=== PATIENT | female | born 1985 | race Caucasian/White ===

== ENCOUNTER 2019-01-21 14:54 | Inpatient (IN) | payer OTHER ==
[~2019-01-21] VITALS: Ht 162.6 cm; Wt 79.4 kg
[~2019-01-21 14:54] MED LIST changes: -Augmentin 875-1 EACH PO; -OXYC5 PO
--- NOTE | 2019-01-22 07:29 | NUR ---
SHIFT SUMMARY PT A&O X4 T/O SHIFT. SCD'S TO BLE'S. ABD SOFT, TENDER, BTX4. PT INDEPENDENT IN ROOM; ORAL CARE SUPPLIES, ORAL SWABS AND MOUTH WASH IN PT ROOM. IV GTT PER EMAR. NAUSEA X1 MANAGED PER EMAR. RLQ PAIN MANAGED PER EMAR. PT NPO POST MIDNIGHT. AT BEDSIDE. REPORT GIVEN TO DAY SHIFT RN.
--- NOTE | 2019-01-22 10:40 | NUR ---
PT INTO SDS VIA GURNEY FROM 221. Patient confirms NPO status and agrees with scheduled surgery. Lungs clear T/O to Auscultation. History, Chart, Medications and Allergies reviewed before start of procedure.
--- NOTE | 2019-01-22 11:53 | NUR ---
01/22/19 1153 Michael Gilbert PT ON SCHEDULED ANTIBIOTICS AND RECIEVED PRIOR TO ARRIVAL TO OR.
--- NOTE | 2019-01-22 13:23 | NUR ---
BREATHING RA. BIOX 94%. DENIES PAIN. SHAKES HEAD YES WHEN ASKED IF C/O NAUSEA. NO EMESIS.
--- NOTE | 2019-01-22 15:39 | NUR ---
SHIFT SUMMARY PT A&OX4, VSS, S/P LAP APPY, 3 GAUZE/TAPE OVER STERISTRIPS, DEDRICK DRAIN SEROSANGUINOUS OUTPUT. DENIES PAIN AT THIS TIME. NAUSEA TX'D X1. WCTM AND TX PER EMAR UNTIL REPORT GIVEN TO ONCOMING NOC RN.
[2019-01-23 04:25] LABS: BASOPHILS ABSOLUTE AUTO 0.03 K/mm3 (0.00-0.23); BASOPHILS PERCENT AUTO 0 % (0-2); EOSINOPHILS ABSOLUTE AUTO 0.02 K/mm3 (0.00-0.68); EOSINOPHILS PERCENT AUTO 0 % (0-6); Hematocrit 35.3 % (33.0-51.0); Hemoglobin 11.2 g/dL (11.5-16.0); IMMATURE GRAN ABSOLUTE AUTO 0.05 K/mm3 (0.00-0.10); IMMATURE GRAN PERCENT AUTO 0 % (0-1); LYMPHOCYTES ABSOLUTE AUTO 0.78 K/mm3 (0.84-5.20); LYMPHOCYTES PERCENT AUTO 6 % (21-46); MONOCYTES ABSOLUTE AUTO 0.67 K/mm3 (0.16-1.47); MONOCYTES PERCENT AUTO 5 % (4-13); Mean Corpuscular HGB 28.6 pg (26.0-34.0); Mean Corpuscular HGB Conc 31.7 g/dL (31.5-36.5); NEUTROPHILS ABSOLUTE AUTO 10.85 K/mm3 (1.96-9.15); NEUTROPHILS PERCENT AUTO 88 % (41-73); Platelet Count 215 K/mm3 (150-400); RDW Coefficient Variation 12.9 % (11.7-14.2); RDW Standard Deviation 42.3 fL (35.1-46.3); Red Blood Cell Count 3.92 M/mm3 (3.80-5.20)
[2019-01-23 04:28] LABS: Mean Corpuscular Volume 90 fL (80-100)
[2019-01-23 04:48] LABS: Anion Gap 3 mmol/L (6-16); Blood Urea Nitrogen 5 mg/dL (8-24); Bun/Creatinine Ratio 6.7 (12.0-20.0); CO2, Blood 29 mmol/L (21-32); Chloride, Blood 105 mmol/L (98-108); Creatinine, Blood 0.75 mg/dL (0.40-1.00); Glomerular Filtration Rate >60 (60-); Glucose, Blood 124 mg/dL (70-99); Potassium, Blood 3.3 mmol/L (3.5-5.5); Sodium, Blood 137 mmol/L (136-145)
--- NOTE | 2019-01-23 07:34 | NUR ---
SHEILA: POD [address] LOVE. VSS, AFEBRILE ON ROOM AIR. PT VOIDING, TOLERATING REG DIET AND MOVES WELL INDEPENDENTLY IN ROOM. MILD TO MODERATE ABD DISTENTION WITH APPROXIMATELY 100 ML SEROUS OUTPUT IN DEDRICK DRAIN. CONTINUE IV ROCEPHIN AND FLAGYL.
--- NOTE | 2019-01-23 18:28 | NUR ---
summary pain controlled with motrin. patient states is passing flatus. ambulating independently in hallway and room
[2019-01-24 04:31] LABS: BASOPHILS ABSOLUTE AUTO 0.02 K/mm3 (0.00-0.23); BASOPHILS PERCENT AUTO 0 % (0-2); EOSINOPHILS ABSOLUTE AUTO 0.08 K/mm3 (0.00-0.68); EOSINOPHILS PERCENT AUTO 1 % (0-6); Hematocrit 30.4 % (33.0-51.0); Hemoglobin 9.8 g/dL (11.5-16.0); IMMATURE GRAN ABSOLUTE AUTO 0.02 K/mm3 (0.00-0.10); IMMATURE GRAN PERCENT AUTO 0 % (0-1); LYMPHOCYTES ABSOLUTE AUTO 0.86 K/mm3 (0.84-5.20); LYMPHOCYTES PERCENT AUTO 12 % (21-46); MONOCYTES ABSOLUTE AUTO 0.44 K/mm3 (0.16-1.47); MONOCYTES PERCENT AUTO 6 % (4-13); Mean Corpuscular HGB 28.2 pg (26.0-34.0); Mean Corpuscular HGB Conc 32.2 g/dL (31.5-36.5); Mean Corpuscular Volume 88 fL (80-100); NEUTROPHILS ABSOLUTE AUTO 5.78 K/mm3 (1.96-9.15); NEUTROPHILS PERCENT AUTO 80 % (41-73); Platelet Count 185 K/mm3 (150-400); RDW Coefficient Variation 12.8 % (11.7-14.2); RDW Standard Deviation 40.9 fL (35.1-46.3); Red Blood Cell Count 3.47 M/mm3 (3.80-5.20)
--- NOTE | 2019-01-24 07:42 | NUR ---
SUMMARY: POD [address] LOVE. VSS, AFEBRILE, ROOM AIR, VOIDING. PAIN WELL CONTROLLED IN NOC WITH 800MG IBUPROFEN. WBC DOWN TO 7.2 THIS MORNING; ANTICIPATE DC HOME TODAY.
--- NOTE | 2019-01-24 10:38 | NUR ---
20G IV PRESENT TO L HAND UPON ASSESSMENT.
[2019-01-24] MEDS ORDERED: OXYC5 PO (13:20)
[2019-01-24] MEDS ORDERED: Augmentin 875-1 EACH PO (13:21)
--- NOTE | 2019-01-24 13:42 | NUR ---
PT DISCHARGED AT THIS TIME. PT AMBULATED OUT. ASSISTANCE WAS OFFERED, PT DECLINED.
--- NOTE | 2019-01-24 13:43 | NUR ---
DISCHARGE SUMMARY PT A&OX4, VSS, LEFT FLOOR WITH ALL PERSONAL POSSESSIONS INCLUDING DISCHARGE PACKET AND 1 SCRIPT FOR RTWORK, NARC SCRIPT, ABX SCRIPT. DISCHARGE INSTRUCTIONS PROVIDED. PT REP UNDERSTANDING THOSE INSTRUCTIONS INCLUDING FU WITH SURGEON IN 2 WKS, TAKE ABX BID WMEALS, CALL SG WITH Q'S OR S/SX INFECTION, LEAVE STERIS IN PLACE 7-10 DAYS, OK TO SHOWER NO TUB/JACUZZI. IV DC'D.
== END 2019-01-24 13:44 | disposition home or self-care (01) | DRG 339 ==
LOC: ER 14:54 → SURS 17:07
PROVIDERS: ADMIT Surgery
PROC: 0DTJ4ZZ Resection of Appendix, Percutaneous Endoscopic Approach (ICD-10-PCS; principal; 2019-01-22 11:30)
DX: K35.32 Acute appendicitis with perforation, localized peritonitis, and gangrene, without abscess (principal); D68.2 Hereditary deficiency of other clotting factors; Z87.891 Personal history of nicotine dependence
CPT/HCPCS: 36415; 80048; 85025; 88302; 96365; 96367; 99285-25; A9270-GY; J0330; J0696; J1650; J2250; J2405; J2704; J2710; J3010; J7030; J7120

== ENCOUNTER → 2019-01-21 | Outpatient (CLI) | payer OTHER ==
[~2019-01-21] MED LIST: ACET325; ALBU90OI INH; AMOCLA875 PO; AMOX500 PO; Augmentin 875-1 EACH PO; BCP PO; CEFD300 PO; HYDACE5 PO; IBUHYD PO; IBUP200; MULVITMINE; NAPR500 PO; ONDA4 PO; OXYC5 PO; RXHYDACE PO; RXHYDMOR2 PO; TRAM50 PO
[2019-01-21 13:07] LABS: BASOPHILS ABSOLUTE AUTO 0.03 K/mm3 (0.00-0.23); BASOPHILS PERCENT AUTO 0 % (0-2); EOSINOPHILS ABSOLUTE AUTO 0.01 K/mm3 (0.00-0.68); EOSINOPHILS PERCENT AUTO 0 % (0-6); Hematocrit 42.8 % (33.0-51.0); Hemoglobin 14.5 g/dL (11.5-16.0); IMMATURE GRAN ABSOLUTE AUTO 0.27 K/mm3 (0.00-0.10); IMMATURE GRAN PERCENT AUTO 2 % (0-1); LYMPHOCYTES PERCENT AUTO 11 % (21-46); MONOCYTES ABSOLUTE AUTO 1.06 K/mm3 (0.16-1.47); MONOCYTES PERCENT AUTO 7 % (4-13); Mean Corpuscular HGB 28.4 pg (26.0-34.0); Mean Corpuscular HGB Conc 33.9 g/dL (31.5-36.5); Mean Corpuscular Volume 84 fL (80-100); Mean Platelet Volume 9.6 fL (9.1-12.4); NEUTROPHILS ABSOLUTE AUTO 11.85 K/mm3 (1.96-9.15); NEUTROPHILS PERCENT AUTO 80 % (41-73); Platelet Count 291 K/mm3 (150-400); RDW Coefficient Variation 12.6 % (11.7-14.2); RDW Standard Deviation 38.5 fL (35.1-46.3); White Blood Cell Count 14.82 K/mm3 (4.00-11.30)
[2019-01-21 13:14] LABS: Alanine Aminotransfer (ALT/SGP 24 U/L (12-78); Albumin, Blood 4.3 g/dL (3.4-5.0); Albumin/Globulin Ratio 1.2 (0.8-1.8); Alk Phos 63 U/L (40-126); Anion Gap 9 mmol/L (6-16); Aspartate Aminotrans (AST/SGOT 15 U/L (12-37); Bilirubin, Total 0.8 mg/dL (0.1-1.0); Blood Urea Nitrogen 9 mg/dL (8-24); Bun/Creatinine Ratio 12.5 (12.0-20.0); CO2, Blood 25 mmol/L (21-32); Calcium, Blood 9.4 mg/dL (8.5-10.1); Chloride, Blood 102 mmol/L (98-108); Creatinine, Blood 0.72 mg/dL (0.40-1.00); Globulin, Blood 3.6 g/dL (2.2-4.0); Glomerular Filtration Rate >60 (60-); Glucose, Blood 131 mg/dL (70-99); Potassium, Blood 3.8 mmol/L (3.5-5.5); Sodium, Blood 136 mmol/L (136-145); Total Protein, Blood 7.9 g/dL (6.4-8.2)
== END | disposition home or self-care (01) ==
LOC: LAB SHORT 12:57 → LAB EV 12:57
PROVIDERS: Physician Assistant Medical
DX: R10.31 Right lower quadrant pain (principal)
CPT/HCPCS: 80053; 85025

== ENCOUNTER 2019-05-14 10:38 | Day surgery (SDC) | payer OTHER ==
[~2019-05-14] VITALS: Ht 162.6 cm; Wt 77.1 kg
[~2019-05-14 10:38] MED LIST changes: +Augmentin 875-1 EACH PO; +OXYC5 PO
[2019-05-14] MEDS ORDERED: ADVIL LIQUI-GE200 MG (11:27)
[2019-05-14] MEDS ORDERED: Adipex-P37.5 MG (11:27)
[2019-05-14] MEDS ORDERED: TERB250 (11:27)
--- NOTE | 2019-05-14 12:44 | NUR ---
05/14/19 1244 Cindy Foley ATTEMPTED DILITATION WITH SAVORY 18.
== END 2019-05-14 13:14 | disposition home or self-care (01) ==
LOC: ORSCSDS 10:38
PROVIDERS: Internal Medicine Gastroenterology
PROC: 0DB18ZX Excision of Upper Esophagus, Via Natural or Artificial Opening Endoscopic, Diagnostic (ICD-10-PCS; principal; 2019-05-14 12:00)
PROC: 0D718ZZ Dilation of Upper Esophagus, Via Natural or Artificial Opening Endoscopic (ICD-10-PCS; principal; 2019-05-14 12:00)
PROC: 0D738ZZ Dilation of Lower Esophagus, Via Natural or Artificial Opening Endoscopic (ICD-10-PCS; principal; 2019-05-14 12:00)
PROC: 0D757ZZ Dilation of Esophagus, Via Natural or Artificial Opening (ICD-10-PCS; principal; 2019-05-14 12:00)
PROC: 0DB38ZX Excision of Lower Esophagus, Via Natural or Artificial Opening Endoscopic, Diagnostic (ICD-10-PCS; principal; 2019-05-14 12:00)
DX: R13.10 Dysphagia, unspecified (principal); R49.8 Other voice and resonance disorders; J45.909 Unspecified asthma, uncomplicated; Z87.891 Personal history of nicotine dependence; Z79.899 Other long term (current) drug therapy
CPT/HCPCS: 88305; J2704; J7120

== ENCOUNTER → 2022-08-13 | Outpatient (CLI) | payer OTHER ==
[~2022-08-13] MED LIST changes: +ADVIL LIQUI-GE200 MG; +Adipex-P37.5 MG; +TERB250
[2022-08-13 17:16] LABS: BASOPHILS ABSOLUTE AUTO 0.04 K/mm3 (0.00-0.23); BASOPHILS PERCENT AUTO 1 % (0-2); EOSINOPHILS PERCENT AUTO 1 % (0-6); Hematocrit 43.5 % (33.0-51.0); Hemoglobin 14.8 g/dL (11.5-16.0); IMMATURE GRAN ABSOLUTE AUTO 0.02 K/mm3 (0.00-0.10); IMMATURE GRAN PERCENT AUTO 0 % (0-1); LYMPHOCYTES ABSOLUTE AUTO 2.06 K/mm3 (0.84-5.20); LYMPHOCYTES PERCENT AUTO 26 % (21-46); MONOCYTES ABSOLUTE AUTO 0.48 K/mm3 (0.16-1.47); MONOCYTES PERCENT AUTO 6 % (4-13); Mean Corpuscular Volume 85 fL (80-100); Mean Platelet Volume 10.2 fL (9.1-12.4); NEUTROPHILS ABSOLUTE AUTO 5.12 K/mm3 (1.96-9.15); NEUTROPHILS PERCENT AUTO 66 % (41-73); Platelet Count 257 K/mm3 (150-400); RDW Coefficient Variation 12.5 % (11.7-14.2); RDW Standard Deviation 38.6 fL (35.1-46.3); Red Blood Cell Count 5.11 M/mm3 (3.80-5.20); White Blood Cell Count 7.82 K/mm3 (4.00-11.30)
[2022-08-13 17:56] LABS: Albumin, Blood 4.8 g/dL (3.4-5.0); Albumin/Globulin Ratio 1.3 (0.8-1.8); Bilirubin, Total 0.4 mg/dL (0.1-1.0); Bun/Creatinine Ratio 12.2 (12.0-20.0); Calcium, Blood 9.9 mg/dL (8.5-10.1); Creatinine, Blood 0.82 mg/dL (0.40-1.00); Globulin, Blood 3.6 g/dL (2.2-4.0); Potassium, Blood 3.4 mmol/L (3.5-5.5); Total Protein, Blood 8.4 g/dL (6.4-8.2)
== END | disposition home or self-care (01) ==
LOC: LAB SHORT 17:10 → LAB 17:10
PROVIDERS: Physician Assistant
DX: R10.811 Right upper quadrant abdominal tenderness (principal)
CPT/HCPCS: 80053; 82150; 83690; 85025